=== PATIENT | male | born 1950 | race Caucasian/White ===

== ENCOUNTER 2025-03-10 13:30 | Outpatient (REF) | payer BC, SELFPAY ==
[2025-03-10 19:20] LABS: Abs Immature Grans 0.01 10^3/uL (0.0-0.06); Absolute Basophil Count 0.04 10^3/uL (0.0-0.2); Absolute Eosinophil Count 0.22 10^3/uL (0.0-0.7); Absolute Lymphocyte Count 1.19 10^3/uL (1.2-3.4); Absolute Monocyte Count 0.46 10^3/uL (0.1-0.8); Absolute Neutrophil Count 2.86 10^3/uL (1.2-6.7); Basophils % 0.8 %; Eosinophils % 4.6 %; HCT 37.5 % (40.0-50.0); HGB 12.8 g/dL (13.5-17.5); Immature Grans % 0.2 %; Lymphocytes % 24.9 %; MCH 32.9 pg (27.0-33.0); MCHC 34.1 % (32.0-36.0); MCV 96 fL (80-95); MPV 11.3 fL (8.0-11.0); Monocytes % 9.6 %; Neutrophils % 59.9 %; Platelet Count 146 10^3/uL (130-400); RBC 3.89 10^6/uL (4.36-5.78); RDW-SD 49.5 fL; WBC 4.78 10^3/uL (4.4-10.8)
[2025-03-10 19:45] LABS: ALT 19 U/L (16-63); AST 20 U/L (15-37); Albumin 3.8 g/dL (3.4-5.0); Alkaline Phosphatase 76 U/L (46-116); Anion Gap 7.5 mmol/L (3-11); BUN 12 mg/dL (7-18); Bilirubin, Total 0.6 mg/dL (0.2-1.0); CO2 24.5 mmol/L (21.0-32.0); CREATININE 0.8 mg/dL (0.70-1.30); Calculated LDL 85 mg/dL (<100); Chloride 104 mmol/L (98-107); Cholesterol 195 mg/dL (<200); Estimated GFR 92.87 (mL/min/1.73m2); Glucose 94 mg/dL (74-106); HDL Cholesterol 84 mg/dL (>or=40); Potassium 4.3 mmol/L (3.5-5.1); Sodium 136 mmol/L (136-145); TSH (W/Ref FT4) 3.99 uIU/mL (0.36-3.74); Total Protein 7.7 g/dL (6.4-8.2); Triglyceride 132 mg/dL (<150)
[2025-03-10 20:20] LABS: FREE T4 0.71 ng/dL (0.76-1.46)
[2025-03-13 09:22] LABS: PSA, Diagnostic 0.5 ng/mL (<=6.5)
[2025-03-13 10:55] LABS: Hepatitis C Ab w Rflx HCV PCR Negative (Negative)
== END 2025-03-10 13:31 | disposition home or self-care (01) ==
LOC: NCHCN 13:30
PROVIDERS: PCP Physician Assistant; Visit Provider Physician Assistant
DX: Z11.59 Encounter for screening for other viral diseases (principal); E03.9 Hypothyroidism, unspecified; I10 Essential (primary) hypertension
CPT/HCPCS: 80053; 80061; 86803; 84153; 84439; 84443; 85025

== ENCOUNTER 2025-07-24 16:03 | Outpatient (REF) | payer BC, SELFPAY ==
[2025-07-24 19:41] LABS: TSH (W/Ref FT4) 2.85 uIU/mL (0.36-3.74)
== END 2025-07-24 16:04 | disposition home or self-care (01) ==
LOC: NCHCN 16:03
PROVIDERS: PCP Physician Assistant; Visit Provider Physician Assistant
DX: E03.9 Hypothyroidism, unspecified (principal)
CPT/HCPCS: 84443

== ENCOUNTER 2025-10-04 10:44 | Outpatient (REF) | payer BC, SELFPAY ==
[2025-10-04 21:25] LABS: TSH (W/Ref FT4) 4.10 uIU/mL (0.55-4.78)
== END 2025-10-04 10:45 | disposition home or self-care (01) ==
LOC: NCHCN 10:44
PROVIDERS: PCP Physician Assistant; Visit Provider Physician Assistant
DX: E03.9 Hypothyroidism, unspecified (principal); C61 Malignant neoplasm of prostate
CPT/HCPCS: 84154; 84443